=== PATIENT | female | born 1990 | race Caucasian/White ===

== ENCOUNTER 2017-05-04 14:05 | Emergency (ER) | payer BC, OTHER ==
[~2017-05-04] VITALS: Ht 161.3 cm; Wt 90.3 kg
[2017-05-04 14:25] VITALS: BP 132/62
--- NOTE | 2017-05-04 16:01 | NUR ---
Patient ambulated to bed 3. RN evaluating patient at bedside.
--- NOTE | 2017-05-04 17:00 | NUR ---
PATIENT PRESENTS TO ED WITH NUMBNESS TO DIFFERENT PARTS OF BODY-- . PT STATES . DENIES N/V/D; SKIN IS PINK/WARM/DRY; AAOX4 WITH EVEN AND STEADY GAIT; LUNGS CLEAR BL; HR EVEN AND REGULAR; PT DENIES ANY FEVER, CP, SOB, OR COUGH AT THIS TIME; PATIENT STATES PAIN OF 0/10 AT THIS TIME; VSS; PATIENT POSITIONED FOR COMFORT; HOB ELEVATED; BEDRAILS UP X2; BED DOWN. ER MD MADE AWARE OF PT STATUS.
--- NOTE | 2017-05-04 17:05 | NUR ---
Dr. Juarez evalauting patient at bedside.
[2017-05-04 17:37] VITALS: BP 128/71
== END 2017-05-04 17:36 | disposition home or self-care (01) ==
LOC: MED 14:05
DX: R20.0 Anesthesia of skin (principal); R07.89 Other chest pain; F41.9 Anxiety disorder, unspecified
CPT/HCPCS: 81002; 81025; 93005; 99283